=== PATIENT | female | born 1990 | race African-American/Black ===

== ENCOUNTER 2019-03-11 10:57 | Emergency (ER) | payer OTHER ==
[~2019-03-11] VITALS: Ht 152.4 cm; Wt 70.0 kg
[~2019-03-11 10:57] MED LIST: AMOX500C2 PO; IBUP-1542 PO
[2019-03-11 10:59] VITALS: BP 129/78; PULSE 79; RESP 18; Ht 152.4 cm; Wt 70.0 kg
[2019-03-11] MEDS ORDERED: DEXAMETHASONE 10 MG/ML 1 ML INJ IM ONE (13:00)
[2019-03-11] MEDS ORDERED: PENICILLIN G BENZ 1.2 MIL UNIT SYG IM ONE (13:00)
[2019-03-11] MEDS ORDERED: IBUPROFEN 800 MG TAB PO ONE (13:00)
== END 2019-03-11 13:40 | disposition home or self-care (01) ==
LOC: FTE 10:57
DX: J02.0 Streptococcal pharyngitis (principal)
CPT/HCPCS: 96372; J0561; J1100; Z7502; Z7610